=== PATIENT | female | born 1995 | race Two or more races ===

== ENCOUNTER 2017-09-21 21:53 | Emergency (ER) | payer MEDICAID ==
[~2017-09-21] VITALS: Ht 162.6 cm; Wt 99.8 kg
[2017-09-21 21:54] VITALS: BP 116/82
[2017-09-21] MEDS ORDERED: PENICILLIN VK 500MG TABLET ONE (22:21)
[2017-09-21] MEDS ORDERED: KETOROLAC 30 MG/1 ML IM ONE (22:30)
[2017-09-21] MEDS ORDERED: PENICILLIN VK 500MG TABLET PO SCH (22:30)
== END 2017-09-21 22:47 | disposition home or self-care (01) ==
LOC: ED 22:40
DX: K04.7 Periapical abscess without sinus (principal); K64.4 Residual hemorrhoidal skin tags; K08.89 Other specified disorders of teeth and supporting structures; F17.200 Nicotine dependence, unspecified, uncomplicated
CPT/HCPCS: 99283